=== PATIENT | male | born 1940 | race Caucasian/White ===

== ENCOUNTER 2019-04-20 09:10 | Day surgery (SDC) | payer MEDICARE ==
[~2019-04-20] VITALS: Ht 190.5 cm; Wt 95.5 kg
[2019-04-20 09:40] VITALS: BP 126/72
[2019-04-20] MEDS ORDERED: UBID100C24 PO (09:57)
[2019-04-20] MEDS ORDERED: ATEN25TA PO (09:57)
[2019-04-20] MEDS ORDERED: MULT1TAB57 PO (09:57)
[2019-04-20] MEDS ORDERED: POTA20TA6 PO (09:57)
[2019-04-20] MEDS ORDERED: PRED5TAB PO (09:57)
[2019-04-20] MEDS ORDERED: ROSU10TA2 PO (09:57)
[2019-04-20] MEDS ORDERED: ASPI-496 PO (09:57)
[2019-04-20] MEDS ORDERED: ALLO100T30 PO (09:57)
[2019-04-20] MEDS ORDERED: LISI5TAB7 PO (09:57)
[2019-04-20] MEDS ORDERED: TIMO5DRO28 EACHEYE (09:57)
[2019-04-20] MEDS ORDERED: EZET10TA70 PO (09:57)
[2019-04-20] MEDS ORDERED: CLOPIDOGREL 75 MG TABLET ONE (10:00)
[2019-04-20 10:04] LABS: BASOPHILS # (AUTO) 0.09 x10^3/uL (0-0.1); BASOPHILS % (AUTO) 1 % (0-1); EOSINOPHILS # (AUTO) 0.15 x10^3/uL (0-0.4); EOSINOPHILS % (AUTO) 2 % (1-7); LYMPHOCYTES % (AUTO) 24 % (22-44); MD NO; MEAN CORPUSCULAR HEMOGLOBIN 31.4 pg (27.5-34.5); MEAN CORPUSCULAR HGB CONC 33.5 g/dL (33.2-36.2); MEAN CORPUSCULAR VOLUME 93.9 fL (81-97); MEAN PLATELET VOLUME 7.7 fL (7.4-10.4); MONOCYTES # (AUTO) 0.83 x10^3/uL (0.2-0.8); MONOCYTES % (AUTO) 11 % (2-9); NEUTROPHILS # (AUTO) 4.64 x10^3/uL (1.8-6.8); NEUTROPHILS % (AUTO) 62 % (42-75); PLATELET COUNT 273 x10^3/uL (130-400); RED BLOOD COUNT 4.36 x10^6/uL (4.38-5.82); RED CELL DISTRIBUTION WIDTH 15.2 % (9.4-14.8)
[2019-04-20 10:15] LABS: ANION GAP 4 mmol/L (5-15); CALCIUM 8.7 mg/dL (8.5-10.1); CHLORIDE 111 mmol/L (98-107)
[2019-04-20 10:16] LABS: CREATININE 0.95 mg/dL (0.7-1.3)
[2019-04-20] MEDS ORDERED: LIDOCAINE-MPF 1%, 5ML ONE (10:36)
[2019-04-20] MEDS ORDERED: VERAPAMIL 2.5 MG/ML, 2ML ONE (10:36)
[2019-04-20] MEDS ORDERED: FENTANYL PF 100 MCG/2ML ONE (10:36)
[2019-04-20] MEDS ORDERED: MIDAZOLAM 1 MG/ML, 5ML ONE (10:36)
[2019-04-20] MEDS ORDERED: HEPARIN 1,000 UNITS/ML, 10ML ONE (10:36)
[2019-04-20] MEDS ORDERED: SODIUM CHLORIDE 0.9% 1,000 ML IV SCH ×2 (11:00→11:18)
[2019-04-20] MEDS ORDERED: CLOPIDOGREL 75 MG TABLET PO ONE (11:00)
[2019-05-10] MEDS ORDERED: CLOP75TA PO (07:51)
[2019-05-10] MEDS ORDERED: ACET325T26 PO (07:51)
== END 2019-04-20 13:34 | disposition home or self-care (01) ==
LOC: CACL 09:10
PROVIDERS: ATTEND Internal Medicine Cardiovascular Disease
DX: I35.0 Nonrheumatic aortic (valve) stenosis (principal); I25.10 Atherosclerotic heart disease of native coronary artery without angina pectoris; I10 Essential (primary) hypertension; E78.5 Hyperlipidemia, unspecified; Z79.82 Long term (current) use of aspirin; Z79.899 Other long term (current) drug therapy; Z95.5 Presence of coronary angioplasty implant and graft
CPT/HCPCS: 36415; 80048; 85025; 93454; C1769; C1894; J1644; J2250; J3010; Q9967; 99156

== ENCOUNTER → 2019-05-02 | Outpatient (CLI) | payer MEDICARE ==
[~2019-05-02] MED LIST: ALLO100T30 PO; ASPI-496 PO; ATEN25TA PO; EZET10TA70 PO; LISI5TAB7 PO; MULT1TAB57 PO; OMNIPAQUE 350 MG/ML, 100ML BOTTLE ONE; POTA20TA6 PO; PRED5TAB PO; ROSU10TA2 PO; TIMO5DRO28 EACHEYE; UBID100C24 PO
== END | disposition home or self-care (01) ==
LOC: CVU 09:05 → RAD 10:06
PROVIDERS: ATTEND Internal Medicine Cardiovascular Disease
DX: I71.2 Thoracic aortic aneurysm, without rupture (principal); I35.0 Nonrheumatic aortic (valve) stenosis; I70.0 Atherosclerosis of aorta; N28.1 Cyst of kidney, acquired; M47.816 Spondylosis without myelopathy or radiculopathy, lumbar region; I25.10 Atherosclerotic heart disease of native coronary artery without angina pectoris; I65.23 Occlusion and stenosis of bilateral carotid arteries
CPT/HCPCS: 71275; 74174; 93880; Q9967

== ENCOUNTER → 2019-06-06 | Outpatient (CLI) | payer MEDICARE ==
[~2019-06-06] MED LIST changes: +ACET325T26 PO; +CLOP75TA PO; -OMNIPAQUE 350 MG/ML, 100ML BOTTLE ONE
== END | disposition home or self-care (01) ==
LOC: CVU 08:42
PROVIDERS: ATTEND Internal Medicine Cardiovascular Disease
DX: I35.0 Nonrheumatic aortic (valve) stenosis (principal); I65.29 Occlusion and stenosis of unspecified carotid artery; R06.02 Shortness of breath
CPT/HCPCS: 93306

== ENCOUNTER → 2019-06-30 | Outpatient (CLI) | payer MEDICARE ==
[2019-06-30 16:31] LABS: BASOPHILS % (AUTO) 1 % (0-1); EOSINOPHILS # (AUTO) 0.27 x10^3/uL (0-0.4); EOSINOPHILS % (AUTO) 2 % (1-7); LYMPHOCYTES # (AUTO) 2.16 x10^3/uL (1-3.4); LYMPHOCYTES % (AUTO) 18 % (22-44); MD NO; MEAN CORPUSCULAR HGB CONC 32.8 g/dL (33.2-36.2); MEAN CORPUSCULAR VOLUME 94.4 fL (81-97); MEAN PLATELET VOLUME 7.6 fL (7.4-10.4); MONOCYTES # (AUTO) 0.91 x10^3/uL (0.2-0.8); MONOCYTES % (AUTO) 8 % (2-9); NEUTROPHILS # (AUTO) 8.53 x10^3/uL (1.8-6.8); NEUTROPHILS % (AUTO) 71 % (42-75); PLATELET COUNT 331 x10^3/uL (130-400); RED BLOOD COUNT 4.45 x10^6/uL (4.38-5.82); RED CELL DISTRIBUTION WIDTH 13.8 % (9.4-14.8)
[2019-06-30 16:35] LABS: ALANINE AMINOTRANSFERASE 30 U/L (12-78); ALBUMIN 3.6 g/dL (3.4-5.0); ANION GAP 4 mmol/L (5-15); C-REACTIVE PROTEIN, QUANT 0.29 mg/dL (0.02-0.49); CHLORIDE 107 mmol/L (98-107); CREATININE 1.07 mg/dL (0.7-1.3)
[2019-06-30 16:36] LABS: HCT (SEDRATE) 41.7 % (39.2-51.8)
[2019-06-30 16:37] LABS: ALKALINE PHOSPHATASE 32 U/L (45-117); BILIRUBIN,TOTAL 0.4 mg/dL (0.2-1.0); TOTAL PROTEIN 6.9 g/dL (6.4-8.2)
== END | disposition home or self-care (01) ==
LOC: LAB 15:55
PROVIDERS: ATTEND Family Medicine
DX: M06.9 Rheumatoid arthritis, unspecified (principal); I10 Essential (primary) hypertension; M25.50 Pain in unspecified joint; E78.5 Hyperlipidemia, unspecified
CPT/HCPCS: 36415; 80053; 85025; 85651; 86038; 86140; 86200; 86430

== ENCOUNTER → 2020-05-09 | Outpatient (CLI) | payer MEDICARE | END | disposition home or self-care (01) | LOC: CVU 10:12 | PROVIDERS: ATTEND Internal Medicine Cardiovascular Disease | DX: Z01.810 Encounter for preprocedural cardiovascular examination (principal); I34.0 Nonrheumatic mitral (valve) insufficiency; R06.02 Shortness of breath; I65.29 Occlusion and stenosis of unspecified carotid artery | CPT/HCPCS: 93306 ==

== ENCOUNTER 2020-10-22 13:54 | Outpatient (CLI) | payer MEDICARE ==
[~2020-10-22 13:54] MED LIST changes: -MULT1TAB57 PO; +MULT1TAB58 PO; +POTA-143 PO; -POTA20TA6 PO
[2020-10-22 14:33] LABS: BASOPHILS % (AUTO) 1 % (0-1); EOSINOPHILS % (AUTO) 5 % (1-7); LYMPHOCYTES % (AUTO) 25 % (22-44); MEAN CORPUSCULAR HEMOGLOBIN 28.9 pg (27.5-34.5); MEAN CORPUSCULAR HGB CONC 32.8 g/dL (33.2-36.2); MEAN PLATELET VOLUME 7.6 fL (7.4-10.4); MONOCYTES % (AUTO) 14 % (2-9); NEUTROPHILS % (AUTO) 56 % (42-75); PLATELET COUNT 202 x10^3/uL (130-400); RED BLOOD COUNT 4.77 x10^6/uL (4.38-5.82); RED CELL DISTRIBUTION WIDTH 17.3 % (9.4-14.8)
[2020-10-22 14:44] LABS: ALBUMIN 3.4 g/dL (3.4-5.0); ANION GAP 5 mmol/L (5-15); CALCIUM 8.7 mg/dL (8.5-10.1); CHLORIDE 108 mmol/L (98-107); CREATININE 0.86 mg/dL (0.7-1.3)
[2020-10-22 14:48] LABS: ALANINE AMINOTRANSFERASE 29 U/L (12-78); ALKALINE PHOSPHATASE 34 U/L (45-117); BILIRUBIN,TOTAL 0.4 mg/dL (0.2-1.0); C-REACTIVE PROTEIN, QUANT 0.07 mg/dL (0.02-0.49); TOTAL PROTEIN 6.9 g/dL (6.4-8.2)
[2020-10-22 15:35] LABS: HCT (SEDRATE) 42.1 % (39.2-51.8)
== END 2020-10-22 23:59 | disposition home or self-care (01) ==
LOC: RAD 13:54
PROVIDERS: ATTEND Internal Medicine Rheumatology
DX: M19.041 Primary osteoarthritis, right hand (principal); M19.042 Primary osteoarthritis, left hand; M19.031 Primary osteoarthritis, right wrist; M19.032 Primary osteoarthritis, left wrist; Z11.7 Encounter for testing for latent tuberculosis infection; B19.10 Unspecified viral hepatitis B without hepatic coma; M06.4 Inflammatory polyarthropathy; M06.9 Rheumatoid arthritis, unspecified; M25.742 Osteophyte, left hand; M25.741 Osteophyte, right hand; Z79.899 Other long term (current) drug therapy
CPT/HCPCS: 36415; 77077; 80053; 85025; 85651; 86140; 86200; 86430; 86480; 86803; 87340